=== PATIENT | male | born 1955 | race Caucasian/White ===

== ENCOUNTER → 2018-06-23 | Outpatient (CLI) | payer OTHER ==
--- NOTE | 2018-06-23 10:34 | Diagnostic Imaging Report ---
EXAM: CT Abdomen and Pelvis WITHOUT contrast INDICATION: Renal stone. COMPARISON: None. TECHNIQUE: Abdomen and pelvis were scanned utilizing a multidetector helical scanner from the lung base to the pubic symphysis without administration of IV contrast. Absence of intravenous contrast decreases sensitivity for detection of focal lesions and vascular pathology. Coronal and sagittal reformations were obtained. Renal stone protocol was performed. Dose modulation, iterative reconstruction, and/or weight based adjustment of the mA/kV was utilized to reduce the radiation dose to as low as reasonably achievable. IV CONTRAST: None. ORAL CONTRAST: Water RADIATION DOSE: Total DLP: 789.9 mGy*cm COMPLICATIONS: None FINDINGS: LINES and TUBES: None. LOWER THORAX: Patchy dependent atelectasis at the lung bases. Coronary atherosclerosis. HEPATOBILIARY: Mild fatty liver. There is geographic hyperdensity within the left hepatic lobe, measuring up to 6 cm. No biliary ductal dilation. GALLBLADDER: No radio-opaque stones or sludge. No wall thickening. SPLEEN: No splenomegaly. Calcified splenic granulomas. PANCREAS: No focal masses or ductal dilatation. ADRENALS: No adrenal nodules KIDNEYS/URETERS: No hydronephrosis. No cystic or solid mass lesions. There is an 8 mm nonobstructing right lower pole renal stone. GI TRACT: No abnormal distention, wall thickening, or evidence of bowel obstruction. There are diverticula within the colon without evidence of diverticulitis. Appendix is normal. PELVIC ORGANS/BLADDER: There is a 2.9 x 1.7 cm stone within the bladder posteriorly. Calcified phleboliths within the pelvis. Prostatomegaly measuring 5 cm. LYMPH NODES: No lymphadenopathy. VESSELS: There are scattered atherosclerotic calcifications in the aorta and branch vessels. There is an infrarenal abdominal aortic aneurysm measuring up to 3 cm at the aortic bifurcation PERITONEUM / RETROPERITONEUM: No free air or fluid. BONES/SOFT TISSUES: No acute osseous abnormality. Mild degenerative disc changes of the visualized spine. IMPRESSION: Nonobstructing 8 mm right lower pole renal stone and 2.9 cm bladder stone. Fatty liver with geographic hyperdensity in the left hepatic lobe. This could represent fatty sparing, but liver protocol MRI is suggested for further evaluation. Infrarenal abdominal aortic aneurysm at the bifurcation measuring 3 cm. Follow-up dedicated vascular imaging with CTA or ultrasound is suggested in 3 years. Signed by: Dr. Sarkis Conti MD on 06/23/2018 10:31 AM
== END ==
LOC: CT 09:21
PROVIDERS: ATTEND Urology
DX: N20.0 Calculus of kidney (principal)
CPT/HCPCS: 74176

== ENCOUNTER → 2018-07-09 | Day surgery (SDC) | payer OTHER ==
[2018-07-08 12:20] LABS: BASOPHILS # (AUTO) 0.1 (0.0-0.1); BASOPHILS % 0.8 % (0.0-1.0); EOSINOPHILS # (AUTO) 0.2 (0.0-0.4); EOSINOPHILS % 3.4 % (0.0-6.0); HEMATOCRIT 45.5 % (38.2-49.6); HEMOGLOBIN 15.7 g/dL (14.0-18.0); LYMPHOCYTES # (AUTO) 2.2 (1.0-3.2); LYMPHOCYTES % 34.8 % (18.0-39.1); MEAN CORPUSCULAR HEMOGLOBIN 30.5 pg (28-32); MEAN CORPUSCULAR HGB CONC 34.5 g/dL (31-35); MEAN CORPUSCULAR VOLUME 88.5 fL (81-99); MONOCYTES # (AUTO) 0.6 (0.2-0.8); MONOCYTES % 9.8 % (4.4-11.3); NEUTROPHILS # (AUTO) 3.2 (2.1-6.9); NEUTROPHILS % 50.9 % (38.7-80.0); PLATELET COUNT 266 x10e3/uL (140-360); RED BLOOD COUNT 5.14 x10e6/uL (4.3-5.7); RED CELL DISTRIBUTION WIDTH 11.9 % (11.7-14.4)
[2018-07-08 12:37] LABS: ANION GAP 14.5 mmol/L (8-16); BLOOD UREA NITROGEN 14 mg/dL (7-26); BUN/CREATININE RATIO 14 (6-25); CALCIUM 9.8 mg/dL (8.4-10.2); CARBON DIOXIDE 24 mmol/L (22-29); CHLORIDE 99 mmol/L (98-107); CREATININE, SERUM 0.98 mg/dL (0.72-1.25); EST GLOMERULAR FILTRATION RATE > 60 ML/MIN (60-); GLUCOSE 179 mg/dL (74-118); POTASSIUM 4.5 mmol/L (3.5-5.1); SODIUM 133 mmol/L (136-145)
--- NOTE | 2018-07-08 13:01 | Diagnostic Imaging Report ---
EXAM: CHEST 2 VIEWS, PA and lateral DATE: 07/08/2018 Time stamp on exam: 12:22 PM INDICATION: Preoperative for renal stone surgery. COMPARISON: None FINDINGS: LINES/TUBES: None LUNGS: No consolidations or edema. PLEURA: No effusions or pneumothorax. HEART AND MEDIASTINUM: Normal size and contour. BONES AND SOFT TISSUES: No acute findings. Mild degenerative changes of the spine. IMPRESSION: No acute thoracic abnormality. Signed by: Dr. Charbel Kamara DO on 07/08/2018 12:58 PM
[~2018-07-09] MED LIST: ACETAMINOPHEN 1000 MG/100 ML IV ONE; ASPIR 8181 MG PO; BACITRACIN 50,000 UNIT VIAL ONE; BUPIVACAINE 0.25% 30ML SDV INJ ONE; CEFTRIAXONE SOD 1 GM/NS 50 ML 50 ML IV ONE; CRESTOR10 MG PO; DEXAMETHASONE SOD PHOS INJ 4 MG/ML VIAL ONE; FENTANYL CITRATE/PF 100MCG/2 ML INJ ONE; KETOROLAC TROMETHAMINE 30 MG/ML VIAL ONE; LIDOCAINE HCL 1% LOCAL INJ 20 ML VIAL ONE; LIDOCAINE HCL 2% LOCAL INJ 5 ML SDV VIAL INJ ONE; METOPROLOL SUCC25 MG PO; MIDAZOLAM HCL 2 MG/2 ML VIAL ONE; ONDANSETRON HCL INJ 2MG/ML 2ML 2 MG/ML VIAL ONE; PROPOFOL IV EMULSION 10 MG/ML 20 ML VIAL ONE; SEVOFLURANE INHAL SOLN 250 ML PEN BTL ONE
--- OUTSIDE RECORDS SUMMARY | 2018-07-09 06:58 | XMS REPORT ---
Author Author [facility] Address Unknown Phone Unavailable Care Team Providers Care Scrap Kettle Tender Name Role Phone Tr SANCHEZ Unavailable Unavailable Problems This patient has no known problems. Allergies, Adverse Reactions, Alerts This patient has no known allergies or adverse reactions. Medications This patient has no known medications. Results Test Description Test Time Test Comments Text Results Atomic Results Result Comments CHEST 2 VIEWS 2018-07-08 12:56:00 [place] [id number] Patient Name: ANGELICA PIERRE MR #: [id number] : 1955 Age/Sex: 63/M Req #: [id number] Adm Physician: Ordered by: GAVIOTA SANCHEZ MD Report #: [id number] Location: OR Room/Bed: Procedure: [id number] DX/CHEST 2 VIEWS Exam Date: 07/08/18 Exam Time: 1220 REPORT STATUS: Signed EXAM: CHEST 2 VIEWS, PA and lateral DATE: 07/08/2018 Time stamp on exam: 12:22 PM INDICATION: Preoperative for renal stone surgery. COMPARISON: None FINDINGS: LINES/TUBES: None LUNGS: No consolidations or edema. PLEURA: No effusions or pneumothorax. HEART AND MEDIASTINUM: Normal size and contour. BONES AND SOFT TISSUES: No acute findings. Mild degenerative changes of the spine. IMPRESSION: No acute thoracic abnormality. Signed by: Dr. Rhianna Kamara DO on 07/08/2018 12:58 PM Dictated By: RHIANNA KAMARA DO 1258 Transcribed By: JELENA on 07/08/18 1258 COPY TO: GAVIOTA SANCHEZ MD CT ABDOMEN/PELVIS WO 2018-06-23 10:21:00 [place] [id number] Patient Name: ANGELICA PIERRE MR #: [id number] : 1955 Age/Sex: 63/M Req #: [id number] Adm Physician: Ordered by: GAVIOTA SANCHEZ MD Report #: [id number] Location: CT Room/Bed: Procedure: [id number] CT/CT ABDOMEN/PELVIS WO Exam Date: 06/23/18 Exam Time: 0956 REPORT STATUS: Signed EXAM: CT Abdomen and Pelvis WITHOUT contrast INDICATION: Renal stone. COMPARISON: None. TECHNIQUE: Abdomen and pelvis were scanned utilizing a multidetector helical scanner from the lung base to the pubic symphysis without administration of IV contrast. Absence of intravenous contrast decreases sensitivity for detection of focal lesions and vascular pathology. Coronal and sagittal reformations were obtained. Renal stone protocol was performed. Dose modulation, iterative reconstruction, and/or weight based adjustment of the mA/kV was utilized to reduce the radiation dose to as low as reasonably achievable. IV CONTRAST: None. ORAL CONTRAST: Water RADIATION DOSE: Total DLP: 789.9 mGy*cm COMPLICATIONS: None FINDINGS: LINES and TUBES: None. LOWER THORAX: Patchy dependent atelectasis at the lung bases. Coronary atherosclerosis. HEPATOBILIARY: Mild fatty liver. There is geographic hyperdensity within the left hepatic lobe, measuring up to 6 cm. No biliary ductal dilation. GALLBLADDER: No radio-opaque stones or sludge. No wall thickening. SPLEEN: No splenomegaly. Calcified splenic granulomas. PANCREAS: No focal masses or ductal dilatation. ADRENALS: No adrenal nodules KIDNEYS/URETERS: No hydronephrosis. No cystic or solid mass lesions. There is an 8 mm nonobstructing right lower pole renal stone. GI TRACT: No abnormal distention, wall thickening, or evidence of bowel obstruction. There are diverticula within the colon without evidence of diverticulitis. Appendix is normal. PELVIC ORGANS/BLADDER: There is a 2.9 x 1.7 cm stone within the bladder posteriorly. Calcified phleboliths within the pelvis. Prostatomegaly measuring 5 cm. LYMPH NODES: No lymphadenopathy. VESSELS: There are scattered atherosclerotic calcifications in the aorta and branch vessels. There is an infrarenal abdominal aortic aneurysm measuring up to 3 cm at the aortic bifurcation PERITONEUM / RETROPERITONEUM: No free air or fluid. BONES/SOFT TISSUES: No acute osseous abnormality. Mild degenerative disc changes of the visualized spine. IMPRESSION: Nonobstructing 8 mm right lower pole renal stone and 2.9 cm bladder stone. Fatty liver with geographic hyperdensity in the left hepatic lobe. This could represent fatty sparing, but liver protocol MRI is suggested for further evaluation. Infrarenal abdominal aortic aneurysm at the bifurcation measuring 3 cm. Follow-up dedicated vascular imaging with CTA or ultrasound is suggested in 3 years. Signed by: Dr. Emily Eisenberg MD on 06/23/2018 10:31 AM Dictated By: EMILY EISENBERG MD 1031 Transcribed By: JELENA on 06/23/18 1031 COPY TO: GAVIOTA SANCHEZ MD
--- OUTSIDE RECORDS SUMMARY | 2018-07-09 06:58 | XMS REPORT | Clinical Summary ---
Author Author [facility] Address Unknown Phone Unavailable Care Team Providers Care Meteorological Aide Name Role Phone Jj Miguel MD PCP Allergies Comments Active Allergy Reactions Severity Noted Date Memory loss Lipitor Atorvastatin 08/15/2015 Depo-medrol Methylprednisolone 08/15/2015 Acetate Medications End Date Status Medication Sig Dispensed Refills Start Date Active metoprolol succinate XL 0 (TOPROL-XL) 25 MG 24 hr 6 tablet Active CRESTOR 10 mg tablet 0 6 Active aspirin (ECOTRIN) 81 MG Take 81 mg by 0 enteric coated tablet mouth daily. Active Problems Problem Noted Date Abnormal radionuclide heart study 08/17/2015 Overview: Overview: Mild to moderate ischemia in the Apical Inferior, Basal Inferior, Basal Inferoseptal, and Mid Inferior regions. Post stress LV mildly dilated in size. Post stress EF=53%. (12/02/13). Acute gastroenteritis 08/15/2015 Acute upper respiratory infection 08/15/2015 Acute bronchitis 08/15/2015 Allergic rhinitis 08/15/2015 Carpal tunnel syndrome 08/15/2015 Diagnosis unknown 08/15/2015 Overview: Chart Related Administrative Procedure Chronic inflammatory demyelinating polyneuritis 08/15/2015 Chronic coronary artery disease 08/15/2015 Overview: Overview: 100% occlusion distal LAD. 50% occlusion RCA PDA. (11/09/12). Abnormal finding of trunk 08/15/2015 Overview: Disorder of Trunk Essential hypertension 08/15/2015 HLD (hyperlipidemia) 08/15/2015 Pruritus ani 08/15/2015 Carotid artery disease 12/23/2013 Overview: Overview: Calcified plaque in ICA, 16-49% bilaterally. Velocities; R=92/36, L=93/31. (12/02/13) Left ventricular hypertrophy 12/23/2013 Overview: Overview: Borderline: LV septum=1.1 cm. Peripheral blood vessel disorder 12/23/2013 Encounters Care Team Description Date Type Specialty 03/20/2018 Clinical Corporate Wellness Support after 07/08/2017 Immunizations Name Dates Previously Given Next Due FLUCELVAX QUAD PF (0.5mL 03/20/2018 syringe) Hep A / Hep B 07/26/2011, 04/20/2010, 04/06/2010, 03/30/2010 IPV 03/30/2010 PPD Test 02/19/2013, 07/31/2012, 07/26/2011, 03/30/2010 Td 03/30/2010 Typhoid, Unspecified 03/30/2010 Yellow Fever 07/26/2011 Family History Medical History Relation Name Comments Esophageal cancer Father Hyperlipidemia Father Hyperlipidemia Mother Relation Name Status Comments Father Mother Social History Date Tobacco Use Types Packs/Day Years Used Never Smoker Smokeless Tobacco: Never Used Alcohol Use Drinks/Week oz/Week Comments Yes occ Sex Assigned at Date Recorded Not on file Industry Job Start Date Occupation Not on file Not on file Not on file Travel End Travel History Travel Start No recent travel history available. Last Filed Vital Signs Not on file Plan of Treatment Health Maintenance Due Date Last Done Comments COLON CANCER SCREENING 2004 SHINGLES VACCINES (1 of 2004 2) INFLUENZA VACCINE Completed 03/20/2018 Results Not on fileafter 07/08/2017 Insurance Payer Benefit Subscriber ID Type Phone Address Plan / Group AETNA AETNA PPO xxxxxxxxxx PPO OPEN CHOICE Advance Directives Patient has advance care planning documents on file. For more information, deysi lawrence contact: Bernard Kiran [address] [place] [address]
--- NOTE | 2018-07-09 11:51 | Operative Report ---
DATE OF PROCEDURE: July 09, 2018 PREOPERATIVE DIAGNOSIS: Large bladder stone. POSTOPERATIVE DIAGNOSIS: Large bladder stone. OPERATION PERFORMED: Cystolithotomy. ANESTHESIA: General anesthesia. ESTIMATED BLOOD LOSS: Minimal. INDICATIONS FOR SURGERY: Mr. Jaron Cordova is a 63-year-old gentleman who was noted to have hematuria and was found by CAT scan to have a large bladder stone measuring approximately 3 cm in diameter. He now presents for definitive surgical management of this problem. PROCEDURE IN DETAIL: The patient was brought into the operating room, placed in supine position. After initiation of general anesthesia, was prepped and draped in the usual sterile fashion. A Ochoa catheter was placed and the balloon inflated. A Pfannenstiel incision was made sharply and dissection was carried down through the abdomen. A horizontal incision was made across the anterior rectus fascia and the rectus muscle split in the midline. The retropubic space was entered. The Ochoa was instilled with 300 mL of sterile water. This allowed the bladder to dilate. An approximately 6-cm incision was made in the midline of the bladder, and silk stay sutures were placed on both sides. The bladder mucosa was visibly normal. The Ochoa balloon was grasped and removed from the bladder. The bladder was explored and a large stone, circular in configuration and approximately 3 cm in diameter was removed. The bladder was then copiously irrigated using saline-containing antibiotic solution and then the bladder was closed in 2 layers using a running chromic suture. A half-inch Pat drain was placed over the repair and allowed to exit through the fascia inferior to the wound. The rectus muscle was sutured at its midline and the rectus fascia was closed with a running Vicryl suture. The skin was closed with subcuticular stitch. The wound was then cleaned and dried and covered with benzoin, Steri-Strips and a Coverlet dressing. Anesthesia was reversed and the patient was transferred to a bed and taken to the postanesthesia care unit in good condition. Of note, the needle and instrument count were correct at the conclusion of the case. Job#: [id number] ANIL
[2018-07-09 12:00] VITALS: BP 151/96
== END | disposition home or self-care (01) ==
LOC: OR 06:55
PROVIDERS: ATTEND Urology
DX: N21.0 Calculus in bladder (principal); N20.0 Calculus of kidney; I25.10 Atherosclerotic heart disease of native coronary artery without angina pectoris; I10 Essential (primary) hypertension; Z88.8 Allergy status to other drugs, medicaments and biological substances; Z01.810 Encounter for preprocedural cardiovascular examination; Z01.812 Encounter for preprocedural laboratory examination; Z01.818 Encounter for other preprocedural examination; Z79.82 Long term (current) use of aspirin; Z68.36 Body mass index [BMI] 36.0-36.9, adult
CPT/HCPCS: 36415; 51050; 71046; 80048; 85025; 88300; 93005; J0131; J0696; J1100; J1885; J2001; J2250; J2405; J2704